=== PATIENT | male | born 1985 | race Caucasian/White ===

== ENCOUNTER 2016-10-25 09:37 | Outpatient (CLI) | payer MEDICARE, OTHER ==
--- NOTE | 2016-10-26 01:37 | Diagnostic Imaging Report ---
JIGNESH ACOSTA~ [facility] [address] [facility].[address] [address] ~ ~ ~ ~ Report Submission Date: Oct 25, 2016 3:25:34 PM CDT Patient ~ Study Name: ELIAS ALDRIDGE ~ Date: Oct 25, 2016 9:53:38 AM CDT ~ Modality Type: US Gender: M ~ Description: US THYROID SOFT TISS HEAD/NCK : 83 ~ Institution: [facility] Physician: JIGNESH ACOSTA ~ ~ ~ ~ Ultrasound thyroid HISTORY: ~ Palpable midline neck lump FINDINGS: ~ A complex cystic and multiseptated 2.1 x 2.1 x 2.1 cm mass is present within the region of the suprasternal notch. ~There is no adjacent thyroid parenchyma included on these images so the etiology of this lesion is unknown. ~ IMPRESSION: ~ Complex septated cystic suprasternal mass. ~Recommend computed tomography of the neck with contrast. ~ Electronically signed on Oct 25, 2016 3:25:34 PM CDT by: Leonard BATISTA
== END 2016-10-25 09:40 ==
LOC: RAD 09:37
PROVIDERS: ATTEND Family Medicine
DX: R22.1 Localized swelling, mass and lump, neck (principal)
CPT/HCPCS: 76536

== ENCOUNTER 2016-11-01 09:51 | Outpatient (CLI) | payer MEDICARE, OTHER ==
--- NOTE | 2016-11-01 14:59 | Diagnostic Imaging Report ---
[facility] [address] [address] [id number] Report Submission Date: Nov 01, 2016 2:26:08 PM CDT Patient Study Name: ELIAS ALDRIDGE Date: Nov 01, 2016 10:16:29 AM CDT Modality Type: CT\SR Gender: M Description: CT NECK SOFT TISSUE W/ : 83 Institution: [facility] Physician JIGNESH ACOSTA - OP CT of the soft tissues of the neck with contrast CLINICAL HISTORY: Palpable lump in the midline superior to the sternal notch. Contrast administered: 94 mL of Omnipaque. TECHNIQUE: CT of the soft tissues of the neck is performed in contiguous axial slices during the intravenous infusion of contrast. Sagittal and coronal reconstructions are performed by the technologist. FINDINGS: Vascular structures enhance normally. Prevertebral soft tissues are within normal limits. Valleculae and piriform sinuses are symmetric as are the vocal cords. The infraglottic airway is normal. The thyroid demonstrates homogeneous enhancement. Epiglottis is unremarkable. There are small cervical and submandibular lymph nodes but no significant adenopathy or mass. Salivary glands are symmetric. Palpable abnormality identified on recent ultrasound corresponds to a well-defined hypodense mass measuring 2.7 x 1.9 cm in cross- sectional diameter. The density is less than -150 Hounsfield units consistent with fat. Given the ultrasound appearance, this suggests a dermoid cyst. IMPRESSION: Probable dermoid cyst corresponding to the patient's palpable abnormality. Electronically signed on Nov 01, 2016 2:26:08 PM CDT by: Milan BATISTA
== END 2016-11-01 09:52 ==
LOC: RAD 09:51
PROVIDERS: ATTEND Nurse Practitioner Family
DX: R22.1 Localized swelling, mass and lump, neck (principal)
CPT/HCPCS: 70491; Q9966